=== PATIENT | male | born 1980 | race Caucasian/White ===

== ENCOUNTER 2016-10-14 15:20 | Emergency (ER) | payer SELFPAY ==
[~2016-10-14] VITALS: Ht 180.3 cm; Wt 80.0 kg
[~2016-10-14 15:20] MED LIST: RANI150 PO; ZOFR4TAB3 SL
[2016-10-14 15:22] VITALS: BP 146/90; PULSE 78; RESP 18; TEMP 98.1; O2SAT 100
--- NOTE | 2016-10-14 16:37 | PD ---
HPI Chief Complaint: Injury Time Seen by Provider: 16:37 Travel History International Travel<30 days: No Contact w/Intl Traveler<30days: No Traveled to known affect area: No History of Present Illness HPI 36-year-old male presents to the emergency Department with complaint of left knee pain 2 weeks after injuring it while trying to perform a stent on a skateboard and tweaking his knee. He has been ambulatory on the affected extremity for the last 2 weeks. Reports feeling of his knee giving out on the sides. Denies paresthesias, loss of sensation, decreased range of motion, decreased strength to the affected extremity. Reports swelling to the knee. Denies fever, chills, nausea, vomiting. Has taken some extra strength migraine medicine with minimal relief. Allergies to codeine. Denies significant past medical history. No other modifying factors or associated signs and symptoms. PFSH Social History Alcohol Use: Yes (AT LEAST 6 DRINKS SISI DAY) Tobacco Use: No Substance Use: No Allergies-Medications (Allergen,Severity, Reaction): Coded Allergies: Codeine (Verified Allergy, Unknown, 10/14/16) Reported Meds & Prescriptions Reported Meds & Active Scripts Active Ibuprofen 800 Mg Tab 800 Mg PO Q6HR PRN Zofran ODT (Ondansetron HCl) 4 Mg Tab 4 Mg SL QID PRN FOR NAUSEA/VOMITING Zantac (Ranitidine HCl) 150 Mg Tab 150 Mg PO BID Review of Systems Except as stated in HPI: all other systems reviewed are Neg Physical Exam Narrative GENERAL: Well-nourished, well-developed male patient, in no acute distress SKIN: Warm and dry. HEAD: Atraumatic. Normocephalic. EYES: Pupils equal and round. No scleral icterus. No injection or drainage. ENT: Mucosa pink and moist. Airway patent. NECK: Trachea midline. CARDIOVASCULAR: Regular rate. RESPIRATORY: No accessory muscle use. GASTROINTESTINAL: Flat. MUSCULOSKELETAL: Left knee is edematous and without erythema or ecchymosis; with point tenderness on palpation to the lateral and medial aspects; with full range of motion and flexion to 90; joint is stable with negative drawer test. Left lower extremity supple and non-tense with 2+ pedal pulse and sensory intact and without erythema or edema. NEUROLOGICAL: Awake and alert. Oriented 3. No obvious cranial nerve deficits. Motor grossly within normal limits. Normal speech. PSYCHIATRIC: Appropriate mood and affect; insight and judgment normal. Data Data Last Documented VS Vital Signs Date Time Temp Pulse Resp B/P Pulse Ox O2 Delivery O2 Flow Rate FiO2 10/14/16 16:47 18 10/14/16 15:22 98.1 78 146/90 100 Room Air Orders Knee, Complete (4vws) (10/14/16 16:37) MDM Medical Decision Making Medical Screen Exam Complete: Yes Emergency Medical Condition: Yes Medical Record Reviewed: Yes Differential Diagnosis ACL tear, meniscus tear, knee sprain, fracture Narrative Course 36-year-old male with left knee injury. I offered the patient and ibuprofen while in the ER and he declined. Left knee x-ray ordered. 1822: Left knee x-ray concludes: Last 24 hours Impressions Knee X-Ray 10/14/161636 Signed Impressions: Service Date/Time: Friday, October 14, 2016 17:03 - CONCLUSION: 1. Moderately large suprapatellar effusion. 2. No acute fracture. Wilberto Orellana MD [place] bandage applied. Crutches provider for support. Mandatory outpatient referral to orthopedics ordered secondary to patient having insurance and follow -up. Instructed patient to follow up with orthopedics for continued evaluation and treatment. Ibuprofen prescribed for home. Patient verbalizes understanding and agreement with treatment plan. Patient is medically cleared and stable for discharge. Discussed reasons to return to the emergency department. Instructed patient to follow up with primary care provider. Patient agrees with treatment plan. The patients vital signs are stable and the patient is stable for outpatient follow-up and treatment. Patient discharged home, stable and in no acute distress. Diagnosis Primary Impression: Strain of left knee Qualified Code: S86.912A - Strain of left knee, initial encounter Additional Impression: Effusion, left knee Referrals: Orthopaedic Surgeon Primary Care Physician Patient Instructions: Crutch Instructions (ED), General Instructions, Knee Sprain (ED) Departure Forms: Tests/Procedures, Work Release Enter return to work date: Oct 11, 2016 Additional Instructions: Tylenol or ibuprofen as needed and as directed to reduce pain and inflammation Rest, ice, compress, and elevate extremity to decrease pain and inflammation Knee Brace for support Crutches for support Avoid aggravating activity; increase activity as tolerated Follow-up with primary care provider Follow-up with orthopedics; a mandatory outpatient referral has been placed so use and follow-up; someone will call you and make an appointment for you to follow-up Return to the emergency department immediately with worsening symptoms Med/Other Pt SpecificInfo: Prescription(s) given Scripts Ibuprofen 800 Mg [id number] Mg PO Q6HR PRN (PAIN) #30 TAB Ref 0 Prov:Lay La 10/14/16 Disposition: 01 DISCHARGE HOME Condition: Stable Lay La Oct 14, 2016 16:37
[2016-10-14] MEDS ORDERED: IBUP800T23 PO (16:43)
--- NOTE | 2016-10-14 17:17 | RADRPT ---
EXAM DATE/TIME: 10/14/2016 17:03 [facility] COMPARISON: No previous studies available for comparison. INDICATIONS : Pain from fall while skateboarding. MEDICAL HISTORY : None. SURGICAL HISTORY : None. ENCOUNTER: Initial ACUITY: 1 day PAIN SCORE: 4/10 LOCATION: Left knee. FINDINGS: Four view examination of the left knee demonstrates no evidence of fracture or dislocation. Bony min eralization is normal. The articular surfaces are intact. Moderately large suprapatellar effusion. CONCLUSION: 1. Moderately large suprapatellar effusion. 2. No acute fracture. Wilberto Orellana MD on October 14, 2016 at 17:15 Board Certified Radiologist. This report was verified electronically.
== END 2016-10-14 18:47 | disposition home or self-care (01) ==
LOC: NETRI 15:20
DX: S86.912A Strain of unspecified muscle(s) and tendon(s) at lower leg level, left leg, initial encounter (principal); M25.462 Effusion, left knee; X58.XXXA Exposure to other specified factors, initial encounter; Y93.51 Activity, roller skating (inline) and skateboarding
CPT/HCPCS: 73564; 99283; E0113

== ENCOUNTER 2017-02-07 19:52 | Emergency (ER) | payer SELFPAY ==
[~2017-02-07] VITALS: Ht 182.9 cm; Wt 78.0 kg
[~2017-02-07 19:52] MED LIST changes: +IBUP800T23 PO
[2017-02-07 19:59] VITALS: BP 140/81; PULSE 101; RESP 18; TEMP 98.2; O2SAT 100
[2017-02-07 20:15] VITALS: BP 139/81; PULSE 73; RESP 18; O2SAT 97
[2017-02-07] MEDS ORDERED: SODIUM CHLOR 0.9% 1000 ML INJ 1,000 ML IV ONE ×2 (20:21→20:30)
[2017-02-07] MEDS ORDERED: SODIUM CHLORIDE 0.9% FLUSH 10 ML FLUSH IVF PRN (20:30)
[2017-02-07] MEDS ORDERED: LORazepam 2 MG/ML VIAL IVS ONE (20:30)
--- NOTE | 2017-02-07 20:33 | PD ---
HPI Chief Complaint: Seizure Time Seen by Provider: 20:15 Travel History International Travel<30 days: No Contact w/Intl Traveler<30days: No History of Present Illness HPI Patient 36 years old. He was sitting on his couch and fell to the ground and screened. He then developed clonic tonic seizure activity with flexion at the arms and legs. He describes biting oral mucosa the midline lower lip. No loss of bowel or bladder. 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 He had vomited earlier today. He's had no prior seizure. He drinks 1 pint of liquor daily and 4 large beers daily. The patient 's significant other reports intervals of apnea. En route to the ER the patient was forgetful. The significant other describes a postictal type state which resolved by the time of ER arrival. [facility] Social History Alcohol Use: Yes (AT LEAST 6 DRINKS SISI DAY) Tobacco Use: No Substance Use: No Allergies-Medications (Allergen,Severity, Reaction): Coded Allergies: Codeine (Verified Allergy, Unknown, 02/07/17) Reported Meds & Prescriptions Reported Meds & Active Scripts Active Valium (Diazepam) 10 Mg Tab 10 Mg PO BID PRN Ibuprofen 800 Mg Tab 800 Mg PO Q6HR PRN Zofran ODT (Ondansetron HCl) 4 Mg Tab 4 Mg SL QID PRN FOR NAUSEA/VOMITING Review of Systems Except as stated in HPI: all other systems reviewed are Neg Physical Exam Narrative GENERAL: 36 yo M, WNWD, diaphoretic SKIN: Warm. Diaphoretic. HEAD: Atraumatic. Normocephalic. EYES: Pupils equal and round. No scleral icterus. No injection or drainage. ENT: No nasal bleeding or discharge. Mucous membranes pink and moist. Lower lip gingiva is with a midline laceration. NECK: Trachea midline. No JVD. CARDIOVASCULAR: Regular rate and rhythm. RESPIRATORY: No accessory muscle use. Clear to auscultation. Breath sounds equal bilaterally. GASTROINTESTINAL: Abdomen soft, non-tender, nondistended. Hepatic and splenic margins not palpable. MUSCULOSKELETAL: Extremities without clubbing, cyanosis, or edema. No obvious deformities. NEUROLOGICAL: Awake and alert. No obvious cranial nerve deficits. Motor grossly within normal limits. Five out of 5 muscle strength in the arms and legs. Normal speech. PSYCHIATRIC: Appropriate mood and affect; insight and judgment normal. Data Data Last Documented VS Vital Signs Date Time Temp Pulse Resp B/P Pulse Ox O2 Delivery O2 Flow Rate FiO2 02/07/17 21:34 89 16 136/82 97 02/07/17 21:07 Room Air 02/07/17 20:40 98.2 VS reviewed Orders Complete Blood Count With Diff (02/07/17 20:21) Basic Metabolic Panel (Bmp) (02/07/17 20:21) Alcohol (Ethanol) (02/07/17 20:21) Electrocardiogram (02/07/17 ) Blood Glucose (02/07/17 20:21) Ecg Monitoring (02/07/17 20:21) Iv Access Insert/Monitor (02/07/17 20:21) Oximetry (02/07/17 20:21) Sodium Chlor 0.9% 1000 Ml Inj (Ns 1000 M (02/07/17 20:21) Sodium Chloride 0.9% Flush (Ns Flush) (02/07/17 20:30) Lorazepam Inj (Ativan Inj) (02/07/17 20:30) Sodium Chlor 0.9% 1000 Ml Inj (Ns 1000 M (02/07/17 20:30) Potassium Chloride (Kcl) (02/07/17 21:00) Ondansetron Odt (Zofran Odt) (02/07/17 21:00) Labs Laboratory Tests Test 02/07/17 20:15 White Blood Count 7.7 TH/MM3 Red Blood Count 4.23 MIL/MM3 Hemoglobin 15.6 GM/DL Hematocrit 45.5 % Mean Corpuscular Volume 107.4 FL Mean Corpuscular Hemoglobin 37.0 PG Mean Corpuscular Hemoglobin 34.4 % Concent Red Cell Distribution Width 12.6 % Platelet Count 158 TH/MM3 Mean Platelet Volume 8.4 FL Neutrophils (%) (Auto) 78.1 % Lymphocytes (%) (Auto) 10.3 % Monocytes (%) (Auto) 9.9 % Eosinophils (%) (Auto) 1.0 % Basophils (%) (Auto) 0.7 % Neutrophils # (Auto) 5.9 TH/MM3 Lymphocytes # (Auto) 0.8 TH/MM3 Monocytes # (Auto) 0.8 TH/MM3 Eosinophils # (Auto) 0.1 TH/MM3 Basophils # (Auto) 0.1 TH/MM3 CBC Comment DIFF FINAL Differential Comment Sodium Level 136 MEQ/L Potassium Level 3.1 MEQ/L Chloride Level 98 MEQ/L Carbon Dioxide Level 23.0 MEQ/L Anion Gap 15 MEQ/L Blood Urea Nitrogen 7 MG/DL Creatinine 1.00 MG/DL Estimat Glomerular Filtration 84 ML/MIN Rate Random Glucose 101 MG/DL Calcium Level 8.9 MG/DL Ethyl Alcohol Level 7 MG/DL MDM Medical Decision Making Medical Screen Exam Complete: Yes Emergency Medical Condition: Yes Differential Diagnosis alcohol withdrawal, epilepsy, electrolyte imbalance, dehydration, renal failure Narrative Course CBC & BMP Diagram 02/07/17 20:15 Pt is highly motivated to stop drinking alcohol. We discussed usage of Valium to help with withdrawal symptoms. Pt's significant other was present throughout and is motivated to help patient. The patient is resting comfortably and feels better, is alert and in no distress. The patients results and examination findings were discussed. The repeat examination is unremarkable and benign. The history, exam, diagnostic testing, and current condition do not suggest any significant pathology to warrant further testing, continued ED treatment, admission, or surgical evaluation at this point. The vital signs have been stable. The patient does not have uncontrollable pain, intractable vomiting, or other significant symptoms. The patient's condition is stable and appropriate for discharge. The patient will pursue further outpatient evaluation with a primary care physician or other designated or consulting physician as indicated in the discharge instructions. The patient expressed understanding and was agreeable with this plan. Diagnosis Primary Impression: Seizure Referrals: Primary Care Physician 2 days Additional Instructions: You have a choice when it comes to health care, and we are glad that you chose [facility]. Hopefully, we have met your expectations on today's visit. You are welcome to return to [facility] at any time, as we are committed to meeting the health care needs of our community. Med/Other Pt SpecificInfo: Prescription(s) given Scripts Diazepam (Valium)10 Mg Tab10 Mg PO BID PRN (WITHDRAWAL) #20 TAB Ref 0 Prov:Tarun Murray MD 02/07/17 Disposition: 01 DISCHARGE HOME Condition: Stable Tarun Murray MD Feb 07, 2017 20:33
[2017-02-07 20:40] VITALS: BP 140/81; PULSE 101; RESP 18; TEMP 98.2; O2SAT 100
[2017-02-07 20:44] LABS: AUTOMATED NEUTROPHIL # 5.9 TH/MM3 (1.8-7.7); BASOPHIL # 0.1 TH/MM3 (0-0.2); BASOPHIL % 0.7 % (0.0-2.0); EOSINOPHIL # 0.1 TH/MM3 (0-0.4); HEMATOCRIT 45.5 % (39.0-51.0); HEMO FLAGS DIFF FINAL; LYMPH % 10.3 % (9.0-44.0); LYMPHOCYTE # 0.8 TH/MM3 (1.0-4.8); MEAN CELL VOLUME 107.4 FL (80.0-100.0); MEAN CORPUSCULAR HGB CONC 34.4 % (32.0-36.0); MONO % 9.9 % (0.0-8.0); NEUT % 78.1 % (16.0-70.0); PLATELET COUNT 158 TH/MM3 (150-450); RED BLOOD COUNT 4.23 MIL/MM3 (4.50-5.90); RED CELL DISTRIBUTION WIDTH 12.6 % (11.6-17.2); WHITE BLOOD COUNT 7.7 TH/MM3 (4.0-11.0)
[2017-02-07 20:51] LABS: POTASSIUM 3.1 MEQ/L (3.5-5.1)
[2017-02-07] MEDS ORDERED: POTASSIUM CHLORIDE 20 MEQ CONTROLLED RELEASE TAB PO ONE (21:00)
[2017-02-07] MEDS ORDERED: ONDANSETRON ODT 4 MG TAB PO ONE (21:00)
[2017-02-07 21:07] VITALS: BP 134/73; PULSE 97; RESP 18
[2017-02-07] MEDS ORDERED: DIAZ10 PO (21:21)
[2017-02-07 21:34] VITALS: BP 136/82
--- NOTE | 2017-02-08 08:58 | EKG ---
Date Performed: 02/07/2017 Time Performed: 20:28:06 PTAGE: 36 years EKG: Sinus rhythm NORMAL ECG NO PREVIOUS TRACING DOCTOR: Georgi Pringle Interpretating Date/Time 02/08/2017 08:57:55
== END 2017-02-07 21:49 | disposition home or self-care (01) ==
LOC: PHED 19:52
DX: R56.9 Unspecified convulsions (principal)
CPT/HCPCS: 80048; 80307; 85025; 93005; 96361; 96374; 99284; J2060; J7030